=== PATIENT | female | born 1995 | race Caucasian/White ===

== ENCOUNTER 2020-06-03 23:10 | Emergency (ER) | payer OTHER ==
[~2020-06-03 23:10] MED LIST: COLACE 100MG C100 MG PO; FAMOTIDINE20 MG PO; IBUPROFEN600 MG PO; LORTAB 5-325 M1 EACH PO; NOVOLIN N100 UNIT/1 SC; NOVOLIN R100 UNIT/1 SC; NOVOLIN R100 UNIT/1 SQ; PRENATABS FA T1 EACH PO
[2020-06-04 00:24] LABS: HEMOGLOBIN 14.3 gm/dl (12.3-15.3); RED BLOOD COUNT 4.86 M/UL (4.00-5.10); WHITE BLOOD COUNT 14.9 K/UL (4.5-11.0)
[2020-06-04 00:41] LABS: BUN/CREATININE RATIO 12 (0-10)
[2020-06-04] MEDS ORDERED: ASPIRIN CHEWABL81 MG PO (01:03)
== END 2020-06-04 01:35 | disposition home or self-care (01) ==
LOC: ER1 23:10
PROVIDERS: Emergency Medicine
DX: R07.2 Precordial pain (principal); M79.602 Pain in left arm
CPT/HCPCS: 71045; 80053; 82550; 82553; 83690; 83874; 84484; 84703; 85025; 85379; 93005; 99285

== ENCOUNTER 2020-06-08 20:08 | Emergency (ER) | payer OTHER ==
[~2020-06-08 20:08] MED LIST changes: +ASPIRIN CHEWABL81 MG PO
[2020-06-08 20:54] LABS: HEMOGLOBIN 13.9 gm/dl (12.3-15.3); RED BLOOD COUNT 4.86 M/UL (4.00-5.10); WHITE BLOOD COUNT 13.1 K/UL (4.5-11.0)
[2020-06-08 21:08] LABS: BUN/CREATININE RATIO 10 (0-10)
== END 2020-06-08 23:50 | disposition home or self-care (01) ==
LOC: ER1 20:08
PROVIDERS: Family Medicine
DX: R07.89 Other chest pain (principal); M54.2 Cervicalgia; H92.02 Otalgia, left ear
CPT/HCPCS: 71045; 80048; 82550; 82553; 83874; 84484; 85025; 93005; 99285

== ENCOUNTER 2020-06-15 18:45 | Emergency (ER) | payer OTHER | END 2020-06-15 19:08 | disposition left against medical advice (07) | LOC: ER1 18:45 | DX: Z53.21 Procedure and treatment not carried out due to patient leaving prior to being seen by health care provider (principal) ==

== ENCOUNTER 2020-06-23 22:05 | Emergency (ER) | payer OTHER | END 2020-06-23 22:40 | disposition left against medical advice (07) | LOC: ER1 22:05 | DX: Z53.21 Procedure and treatment not carried out due to patient leaving prior to being seen by health care provider (principal) ==

== ENCOUNTER 2020-06-25 17:32 | Emergency (ER) | payer OTHER ==
[2020-06-25 19:26] LABS: HEMOGLOBIN 13.4 gm/dl (12.3-15.3); RED BLOOD COUNT 4.43 M/UL (4.00-5.10); WHITE BLOOD COUNT 8.9 K/UL (4.5-11.0)
[2020-06-25 19:46] LABS: BUN/CREATININE RATIO 11 (0-10)
[2020-06-25] MEDS ORDERED: AMOXICILLIN500 M1 PO (23:22)
[2020-06-25] MEDS ORDERED: IBUPROFEN800 MG PO (23:22)
== END 2020-06-25 23:30 | disposition home or self-care (01) ==
LOC: ER1 17:32
PROVIDERS: Physician Assistant Medical
DX: H66.92 Otitis media, unspecified, left ear (principal); I88.9 Nonspecific lymphadenitis, unspecified; Z79.899 Other long term (current) drug therapy
CPT/HCPCS: 70490; 80053; 81001; 84703; 85025; 86403; 87081; 87880; 99283

== ENCOUNTER → 2020-07-20 | Outpatient (CLI) | payer OTHER ==
[~2020-07-20] MED LIST changes: +AMOXICILLIN500 M1 PO; +IBUPROFEN800 MG PO
== END ==
LOC: US 09:30
DX: E04.9 Nontoxic goiter, unspecified (principal); R10.9 Unspecified abdominal pain; K76.0 Fatty (change of) liver, not elsewhere classified
CPT/HCPCS: 76536; 76705

== ENCOUNTER → 2021-03-15 | Outpatient (CLI) | payer OTHER | LOC: NM 09-23 10:00 | DX: K21.00 Gastro-esophageal reflux disease with esophagitis, without bleeding (principal); R10.13 Epigastric pain | CPT/HCPCS: 78264; A9541 ==